=== PATIENT | male | born 1965 | race Caucasian/White ===

== ENCOUNTER 2024-05-13 08:29 | Emergency (ER) | payer OTHER, SELFPAY ==
[2024-05-13 08:32] VITALS: BP 119/74
--- NOTE | 2024-05-13 08:53 | ED.GENMED ---
History of Present Illness
<Jessica Madrigal PA-C - Last Filed: 05/15/24 07:33>
General
Chief Complaint: Fever
Source: patient
Exam Limitations: none
Time Seen by Provider: 05/13/24 08:40
Nursing documentation reviewed up to this point in time: agreed with
History of Present Illness
History of Present Illness:
58 y/o M wth h/o HLD
here with fever and cough
says that 2 weeks ago he had a lot of sinus congetsion and pressure L face, it was swollen and sore and he had teeth pain
he ended up [facility]jinder to [facility] 4 days ago and got abx (doxy) which he has been taking the past 3.5 days
pt says just in the past 2.5 days he has had fever to t max 101.5
he hasn' really taken anything for the fever, just mucinex
he also said his family has URI with fevr and cough now too in the past 2 days
no cp, sob, neck stiffness, vomiting,d iarrhea, sore throat, ear ache, dental pain
mild heaache
last temp was 100 this am.
Past History
<Jessica Madrigal PA-C - Last Filed: 05/15/24 07:33>
Past History
ED Past Medical History: Hypercholesterolemia
ED Past Surgical History: Urological
Social History
Tobacco: Non-smoker
Alcohol: None
Drug: None
Personal:
Living: with family
Review of Systems
<WADE Jara Last Filed: 05/15/24 07:33>
Review of Systems
Allergies reviewed?: Yes
All Other Systems: Not applicable
Phy Exam
<WADE Jara Last Filed: 05/15/24 07:33>
Physical Exam
Physical Exam:
GENERAL: Alert , in no apparent distress
EYE: pupils equal and reactive
NECK: Supple
ENT: b/l TM s clear, pharynx erythematous but no tonsillar hypertrophy or exudates
CARDIAC: Regular rate and rhythm, no edema
LUNGS: Clear breath sounds bilaterally, no acute respiratory distress, no wheezes/rales/rhonchi, occ cough
ABDOMEN: Soft, without focal tenderness, no r/g, no cvat, normal bowel sounds
NEUROLOGICAL: Alert and oriented, no focal neuro deficits
SKIN: Warm and dry, skin intact.
MUSCULOSKELETAL: No edema, well perfused.
PSYCH: Normal and appropriate interaction.
Course
<Jessica Madrigal PA-C - Last Filed: 05/15/24 07:33>
Orders/Labs/Results
Orders:
Orders
05/13/24 08:52
Ibuprofen [Motrin] 800 mg PO NOW STA
CR Chest - 2 Views Urgent
Comment:
Reason For Exam: cough, fever
05/13/24 08:57
COVID-19 Antigen Urgent
Source: Nasal Swab
Influenza A+B Rapid Molecular Urgent
EBONIE Source: Nasal Swab
Specimen Description:
Vital Signs
Initial and Last Documented VS:
Initial Vital Signs
Temp Pulse Resp BP Pulse Ox
37.4 C 81 16 119/74 99
05/13/24 08:32 05/13/24 08:32 05/13/24 08:32 05/13/24 08:32 05/13/24 08:32
Last Documented Vital Signs
Temp Pulse Resp BP Pulse Ox
37.9 C 85 20 119/74 98
05/13/24 10:06 05/13/24 10:39 05/13/24 10:39 05/13/24 08:32 05/13/24 10:39
<Norma Mercedes MD - Last Filed: 05/13/24 10:07>
Orders/Labs/Results
Orders:
Orders
05/13/24 08:52
Ibuprofen [Motrin] 800 mg PO NOW STA
CR Chest - 2 Views Urgent
Comment:
Reason For Exam: cough, fever
05/13/24 08:57
COVID-19 Antigen Urgent
Source: Nasal Swab
Influenza A+B Rapid Molecular Urgent
EBONIE Source: Nasal Swab
Specimen Description:
Vital Signs
Initial and Last Documented VS:
Initial Vital Signs
Temp Pulse Resp BP Pulse Ox
37.4 C 81 16 119/74 99
05/13/24 08:32 05/13/24 08:32 05/13/24 08:32 05/13/24 08:32 05/13/24 08:32
Last Documented Vital Signs
Temp Pulse Resp BP Pulse Ox
37.9 C 85 20 119/74 98
05/13/24 10:06 05/13/24 10:39 05/13/24 10:39 05/13/24 08:32 05/13/24 10:39
<Jessica Madrigal PA-C - Last Filed: 05/15/24 07:33>
MDM/Problems Addressed
Differential Diagnosis Includes:
flu, covid, pneumonia, bacteremia
MDM/Problems Addressed:
58 y/o M
had sinusitis last week, treated with abx on day 4
new fever and symptoms x 2 days
whole family is sick
no neck stiffness, severe ehadache,t rouble breathing
well apperaing
febrile
no tachypnea
cxr indep reviewed by me and d/w rads, no pna
FLU +
which explains new sxs
offered tamiflu, pt accepted
d/c home
<Jessica Madrigal PA-C - Last Filed: 05/15/24 07:33>
*Critical Care Note
Total Time (30-74mins, 75-104mins- exclusive of procedures): Not Applicable
ED Attending Note
<Jessica Madrigal PA-C - Last Filed: 05/15/24 07:33>
-
Portions of this chart may have been created with voice recognition software.� Occasional wrong word or��sound alike� substitutions may have occurred due to the inherent limitations of voice recognition software.
<Norma Mercedes MD - Last Filed: 05/13/24 10:07>
ED Attending Note
Patient seen and examined by attending physician: Yes
I performed the substantive portion of visit, reviewed & personally made and approve the management plan that is documented in note by myself or ELIANE.: Yes
ED Attending Note:
58-year-old male currently being treated for sinusitis with doxycycline, compliant with antibiotics, presents with recurrent fevers. No dyspnea, vomiting, abdominal pain. Lungs CTA, pulse ox within normal limits, nontoxic, no subjective
photophobia. Flu positive. Consideration for Tamiflu will discuss risk and benefit.
Discharge Plan
Departure
Patient Disposition: Home (Routine Discharge)
Date of Disposition: 05/13/24
Time of Disposition: 10:22
Patient with high blood pressure during this ER visit?: No
Condition: Fair
Covid-19: Negative COVID-19
Discharge Problem:
Influenza A
Instructions: Flu in adults - Discharge instructions
Prescriptions:
New
oseltamivir [Tamiflu] 75 mg capsule
75 mg PO BID Qty: 10 0RF
Referrals:
CRISTY LYMAN DO [Family Provider] - Follow up in 5-7 days
Stand Alone Forms: Return to Work
Activity Restrictions/Additional Instructions:
YOU TESTED POSITIVE FOR THE FLU
YOUR NEW FEVER/COUGH AND BODYACHES ARE RELATED TO THIS
STAY HOME UNTIL FEVER FREE FOR 24 HOURS
TAKE TYLENOL OR MOTRIN FOR FEVERS
DRINK FLUIDS
CONTINUE THE ANTIBIOTICS TO FINISH YOUR COURSE FOR YOUR SINUS INFECTION
RETURN FOR: SEVERE FEVER, FEVER >7 DAYS, SHORTNESS OF BREAHT, DEHYDRATION, CHEST PAIN OR ANY CONCERNS.
Interventions
Interventions:
*Risk Screen - Suicide Last Done: 05/13/24 08:35
*General Assessment Last Done: 05/13/24 08:57
*Neglect/Abuse Screening Last Done: 05/13/24 08:35
ED- Fall Risk Assessment Last Done: 05/13/24 09:03
*Nursing Disposition Last Done: 05/13/24 10:39
ED- Neurological Assessment Last Done: 05/13/24 09:03
ED-Skin Assessment Last Done: 05/13/24 09:03
Discharge Date and Time
Discharge Date/Time: 05/13/24 10:40
Print Language: BRAZILIAN
[2024-05-13 08:57] VITALS: BMI 30.1
[2024-05-13] MEDS: MOTRIN 800 MG PO (08:58)
[2024-05-13 09:39] LABS: COVID-19 Antigen Negative (Negative)
== END 2024-05-13 10:40 | disposition home or self-care (01) ==
LOC: EMR 08:29
PROVIDERS: Physician Assistant; EMERGENCY PHYSICIAN Emergency Medicine; FAMILY PHYSICIAN Family Medicine
DX: J10.1 Influenza due to other identified influenza virus with other respiratory manifestations (principal); E78.00 Pure hypercholesterolemia, unspecified; Z11.52 Encounter for screening for COVID-19
CPT/HCPCS: 99284; 71046; 87502; 87811